=== PATIENT | male | born 1995 | race Caucasian/White ===

== ENCOUNTER 2021-10-16 08:38 | Emergency (ER) | payer OTHER, SELFPAY ==
[2021-10-16 08:50] VITALS: BP 110/67; PULSE 71; RESP 16; TEMP 37.1; O2SAT 99
--- NOTE | 2021-10-16 09:36 | ED.EAR ---
HPI - Ear Problem General Chief complaint: Ear Stated complaint: ear infection Time Seen by Provider: 10/16/21 09:38 Source: patient Mode of arrival: ambulatory Limitations: no limitations History of Present Illness HPI Narrative: Alexander Rangel is a 25-year-old male with no prior medical history comes to [facility] with right ear pain and swelling that has been going on for about 2 weeks. Has tried cleaning his ear with peroxide and taking ibuprofen and Tylenol; now his ear is swollen and he is lymph nodes are swollen around the ear canal Related Data Allergies Allergy/AdvReac Type Severity Reaction Status Date / Time No Known Allergies Allergy Verified 10/16/21 09:58 Review of Systems Review of Systems: CONSTITUTIONAL: Denies fever, chills, sweats. EYES: Denies visual changes, redness, discharge. ENT: Denies rhinorrhea, congestion, sore throat, right otalgia. With swelling CARDIOVASCULAR: Denies chest pain, palpitations, edema. RESPIRATORY: Denies dyspnea, wheezing, cough GASTROINTESTINAL: Denies abdominal pain, nausea, vomiting, diarrhea. GENITOURINARY: Denies dysuria, hematuria, abnormal discharge SKIN: Denies rash or itching. NEUROLOGIC: Denies numbness, or focal weakness. PSYCHIATRIC: Denies anxiety or depression. [facility] Past Medical History Medical History No acute medical problems Social History Social History (Updated 10/16/21 @ 09:46 by Do Hernandez CNP) Smoking status: Current every day smoker Tobacco type: cigarettes Alcohol intake: never Substance use: current Substance use type: marijuana Comments At time of signature, I agree with nursing past medical, surgical, social and family history. There is no relevant family history pertinent to the presenting complaint. Exam Narrative: GENERAL: This is a well-nourished, well-developed patient, in mild distress. HEAD: normocephalic, atraumatic. EYES:. Sclera clear/white. Vision is grossly intact. EARS: External ear normal on left and right is red and swollen, auditory canal on right is swollen almost occluded t drainage, TMs not visualized. Hearing grossly intact. NOSE: External nose normal without nasal discharge, nares without redness, no rhinorrhea. THROAT: Mucous membranes moist, posterior pharynx NECK: Neck supple, non-tender CARDIOVASCULAR: Regular rate and rhythm without murmurs, gallops, or rubs. RESPIRATORY: Clear to auscultation. Breath sounds equal bilaterally. No wheezes, rales, or rhonchi. GASTROINTESTINAL: Abdomen soft, SKIN: warm, intact with no suspicious lesions or rash, good texture and turgor. NEURO: awake, alert, and oriented to person, place and time. There were no obvious focal neurologic abnormalities. Steady gait EXTREMITIES: Normal range of motion. BACK: Nontender without deformity Course Course Emergency Course: Patient here with external right ear swelling and pain Start with polymyxin eardrops and amoxicillin 875 twice daily Vital Signs Vital signs: Vital Signs Temperature 98.8 F 10/16/21 08:50 Pulse Rate 71 10/16/21 08:50 Respiratory Rate 16 10/16/21 08:50 Blood Pressure 110/67 10/16/21 08:50 Pulse Oximetry 99 10/16/21 08:50 Temperature 98.8 F 10/16/21 08:50 Pulse Rate 71 10/16/21 08:50 Respiratory Rate 16 10/16/21 08:50 Blood Pressure 110/67 10/16/21 08:50 Pulse Oximetry 99 10/16/21 08:50 Medical Decision Making Differential Diagnosis Differential Diagnosis: Otitis media versus otitis externa versus pharyngitis versus eustachian tube dysfunction Vital Signs Vital Signs: Vital Signs Temperature 98.8 F 10/16/21 08:50 Pulse Rate 71 10/16/21 08:50 Respiratory Rate 16 10/16/21 08:50 Blood Pressure 110/67 10/16/21 08:50 Pulse Oximetry 99 10/16/21 08:50 Temperature 98.8 F 10/16/21 08:50 Pulse Rate 71 10/16/21 08:50 Respiratory Rate 16 10/16/21 08:50 Blood Pressure 11
== END 2021-10-16 10:15 | disposition home or self-care (01) ==
PROVIDERS: Emergency Provider Nurse Practitioner
DX: H60.311 Diffuse otitis externa, right ear (principal); F17.200 Nicotine dependence, unspecified, uncomplicated
CPT/HCPCS: 99213; G0463